=== PATIENT | female | born 1985 | race Caucasian/White ===

== ENCOUNTER 2019-05-23 21:21 | Emergency (ER) | payer OTHER ==
[2019-05-23] MEDS ORDERED: ONDANSETRON HCL INJ/PF 4 MG/2 ML SDV ONE (22:28)
[2019-05-23 22:35] LABS: ABSOLUTE BASOPHILS # (AUTO) 0.1 10^3/uL (0.0-0.2); ABSOLUTE EOSINOPHILS # (AUTO) 0.1 10^3/uL (0.0-0.6); ABSOLUTE LYMPHOCYTES (AUTO) 2.3 10^3/uL (0.5-4.7); ABSOLUTE MONOCYTES (AUTO) 0.7 10^3/uL (0.1-1.4); ABSOLUTE NEUT (AUTO) 8.5 10^3/uL (1.7-8.2); BASOPHILS % (AUTO) 0.6 % (0-2); EOSINOPHILS % (AUTO) 1.2 % (0-6); HEMATOCRIT 36.1 % (36.0-47.0); HEMOGLOBIN 12.6 g/dL (12.0-15.5); LYMPHOCYTES % (AUTO) 19.6 % (13-45); MEAN CORPUSCULAR HEMOGLOBIN 30.8 pg (27.0-33.4); MEAN CORPUSCULAR HGB CONC 34.8 g/dL (32.0-36.0); MEAN CORPUSCULAR VOLUME 89 fl (80-97); MONOCYTES % (AUTO) 6.1 % (3-13); PLATELET COUNT 233 10^3/uL (150-450); RED BLOOD COUNT 4.08 10^6/uL (3.72-5.28); RED CELL DISTRIBUTION WIDTH 14.1 % (11.5-14.0); SEGMENTED NEUTROPHILS % (AUTO) 72.5 % (42-78); TOTAL CELLS COUNTED % (AUTO) 100 %; WHITE BLOOD COUNT 11.8 10^3/uL (4.0-10.5)
[2019-05-23 22:46] LABS: ALANINE AMINOTRANSFERASE 20 U/L (9-52); ALBUMIN 4.6 g/dL (3.5-5.0); ALKALINE PHOSPHATASE 105 U/L (38-126); ANION GAP 8 (5-19); ASPARTATE AMINO TRANSFERASE 20 U/L (14-36); BILIRUBIN,DIRECT 0.2 mg/dL (0.0-0.4); BILIRUBIN,TOTAL 0.3 mg/dL (0.2-1.3); BLOOD UREA NITROGEN 17 mg/dL (7-20); CALCIUM 9.5 mg/dL (8.4-10.2); CARBON DIOXIDE 28 mmol/L (22-30); CHLORIDE 103 mmol/L (98-107); GLUCOSE 100 mg/dL (75-110); LIPASE 151.4 U/L (23-300); POTASSIUM 4.1 mmol/L (3.6-5.0); SODIUM 139.2 mmol/L (137-145); TOTAL PROTEIN 7.6 g/dL (6.3-8.2)
[2019-05-23] MEDS ORDERED: ONDANSETRON HCL INJ/PF 4 MG/2 ML SDV IV ONE (23:20)
[2019-05-23] MEDS ORDERED: MORPHINE SULFATE 10 MG/ML INJ IV ONE (23:21)
[2019-05-23] MEDS ORDERED: MORPHINE SULFATE 10 MG/ML INJ IV PRN (23:27)
[2019-05-23] MEDS ORDERED: RINGERS SOLUTION,LACTATED 1,000 ML IV ONE (23:27)
--- NOTE | 2019-05-23 23:28 | ER Document Report ---
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 Patient states that she is visiting here for a wedding, symptoms started gradually and have been worsening since onset. Describes the pain as being a severe, throbbing, burning pain to the affected abdominal areas with associated nausea and vomiting. No melena, hematochezia or hematemesis. Denies ever having pain like this in the past. Denies distinct shortness of breath but states that it also hurts to breathe. No history of pulmonary embolus. Denies fever or constitutional symptoms. No obvious exacerbating or alleviating factors for her symptoms. TRAVEL OUTSIDE OF THE [place] IN LAST 30 DAYS: No - Related Data Allergies/Adverse Reactions: benzocaine Allergy (Verified 05/23/19 22:36) Past Medical History - General Information source: Patient - Social History Smoking Status: Never Smoker Frequency of alcohol use: None Drug Abuse: None Lives with: Family Family History: Reviewed & Not Pertinent Review of Systems - Review of Systems Notes: Constitutional: Negative for fever. HENT: Negative for sore throat. Eyes: Negative for visual changes. Cardiovascular: Negative for chest pain. Respiratory: Negative for shortness of breath. Gastrointestinal: Positive for abdominal pain and vomiting Genitourinary: Negative for dysuria. Musculoskeletal: Negative for back pain. Skin: Negative for rash. Neurological: Negative for headaches, weakness or numbness. 10 point ROS negative except as marked above and in HPI. Physical Exam - Vital signs Vitals: Temp Pulse Resp BP Pulse Ox 98.9 F 92 20 122/86 H 98 05/23/19 21:44 05/23/19 21:44 05/23/19 21:44 05/23/19 21:44 05/23/19 21:44 Interpretation: Normal Notes: PHYSICAL EXAMINATION: GENERAL: Moderately ill in appearance, appears to be in moderate to severe pain. HEAD: Atraumatic, normocephalic. EYES: Pupils equal round and reactive to light, extraocular movements intact, sclera anicteric, conjunctiva are normal. ENT: nares patent, oropharynx clear without exudates. Moderately dry mucous membranes. NECK: Normal range of motion, supple without lymphadenopathy LUNGS: Breath sounds clear to auscultation bilaterally and equal. No wheezes r ales or rhonchi. HEART: Regular rate and rhythm without murmurs ABDOMEN: Soft, epigastric and right upper quadrant abdominal pain as well as right flank pain. Abdominal exam otherwise without localized tenderness. Normoactive bowel sounds. No guarding, no rebound. No masses appreciated. EXTREMITIES: Normal range of motion, no pitting or edema. No cyanosis. NEUROLOGICAL: No focal neurological deficits. Moves all extremities spontaneously and on command. PSYCH: Moderately anxious SKIN: Warm, Dry, normal turgor, no rashes or lesions noted. Course - Re-evaluation Re-evalutation: 05/23/19 23:27 Patient is a 33-year-old female presenting with right upper abdominal pain, right flank pain and right lower rib pain that started relatively abruptly over the past several hours. Patient is an extensive medical history including esophageal and gastric perforation from excessive NSAID use. The patient is visibly uncomfortable the time of my assessment, actively vomiting. Patient is status post cholecystectomy and appendectomy removing biliary and appendicitis from differential. Labs initially completely unremarkable. Certainly there is concern for PE as patient has a history of a blood clot in both her right upper extremity as well as into her internal jugular vein on the right although she is actively anticoagulated on Xarelto. Alternative considerations would include a repeat esophageal perforation, intra-abdominal abscess. Will proceed with aggressive imaging of the chest abdomen pelvis and continue to reassess at regular intervals. 05/23/19 23:27 05/24/19 02:02 CT chest negative for any evidence of acute pulmonary embolus, CT abdomen pelvis shows possible inflammatory pattern in the stomach and upper intestine. Suspect this could be inflammatory in origin versus possibly infectious. Have advised patient to begin on H2 sabina, Carafate, antiemetics. Patient's clinical exam is much improved from initial assessment. At this time will discharge with return precautions and follow-up recommendations. Verbal discharge instructions given a the bedside and opportunity for questions given. Medication warnings reviewed. Patient is in agreement with this plan and has verbalized understanding of return precautions and the need for primary care follow-up in the next 24-72 hours. - Vital Signs Vital signs: Temp Pulse Resp BP Pulse Ox 98.9 F 92 19 143/85 H 97 05/23/19 21:44 05/23/19 21:44 05/24/19 01:01 05/24/19 01:01 05/24/19 01:01 - Laboratory Result Diagrams: 05/23/19 22:16 05/23/19 22:16 Laboratory results interpreted by me: 05/23/19 05/23/19 22:16 23:34 WBC 11.8 H RDW 14.1 H Absolute Neutrophils 8.5 H Urine Protein 30 H Urine Ketones TRACE H Urine Blood LARGE H Urine Urobilinogen 2.0 H Ur Leukocyte Esterase TRACE H - Diagnostic Test Radiology reviewed: Image reviewed, Reports reviewed Discharge - Discharge Clinical Impression: Upper abdominal pain, Right flank pain Nausea and vomiting Qualifiers: Vomiting type: unspecified Vomiting Intractability: non-intractable Qualified Code(s): R11.2 - Nausea with vomiting, unspecified Condition: Good Disposition: HOME, SELF-CARE Additional Instructions: Your symptoms appear to be most consistent with stomach or upper intestinal irritation. Your CT scan does show some inflammation of your upper intestine but is otherwise normal. There is no evidence of a blood clot in your lung. Please begin taking famotidine 40 mg in the morning and 40 mg at night. Take Carafate prior to meals. You may also take medicine such as Pepto-Bismol or Tums to assist with your pain. Please return to emergency department immediately if you have worsening of your pain, shortness of breath, vomiting, become unable to exert yourself due to pain or difficulty breathing, you pass out, or have any pain that radiates into your arms, jaw, or back. Please also return if you have any additional symptoms that are concerning to you. As we have discussed, the most important thing is lifestyle changes. You need to avoid smoking, sodas, tea, coffee, alcohol, spicy foods, and acidic foods such as citrus fruits, tomato based products, berries, and most fruit juices. Your CT scan does not show any evidence of a blood clot in your lung, does show some inflammation of your upper intestine. Prescriptions: Famotidine 40 mg PO BID #60 tablet Metoclopramide HCl [Reglan 10 mg Tablet] 1 - 2 tab PO ASDIR PRN #25 tablet PRN Reason: Sucralfate [Carafate 1 gm Tablet] 1 gm PO ACHS #120 tablet
[2019-05-23 23:59] LABS: APPEARANCE,URINE CLOUDY; BILIRUBIN,URINE NEGATIVE (NEGATIVE); COLOR,URINE YELLOW; GLUCOSE, URINE NEGATIVE (NEGATIVE); KETONES,URINE TRACE mg/dL (NEGATIVE); LEUKOCYTE ESTERASE,URINE TRACE (NEGATIVE); NITRITE,URINE NEGATIVE (NEGATIVE); PROTEIN,URINE 30 mg/dL (NEGATIVE); URINE SPECIFIC GRAVITY 1.027
--- NOTE | 2019-05-24 00:15 | RADIOLOGY REPORT (SQ) ---
EXAM DESCRIPTION: CT CHEST ANGIOGRAPHY WITHOUT THEN WITH IV CONTRAST COMPLETED DATE/TME: 05/23/2019 23:27 CLINICAL HISTORY: 33 years, Female, cp, recent travel, 2 clots in rt arm current, eval pe COMPARISON: None. TECHNIQUE: Axial CT images of the chest were obtained after the administration of IV contrast. MPR and MIP reconstructions were performed. DLP 353 Images stored on PACS. All CT scanners at this facility use dose modulation, iterative reconstruction, and/or weight based dosing when appropriate to reduce radiation dose to as low as reasonably achievable (ALARA). [facility]: Dose Right [facility]: CareDose [facility]: Dose Right [facility]: Teradose 4D [facility]: Collactive LIMITATIONS: None. FINDINGS: No pulmonary embolism is detected. The visualized portions of the thyroid gland are normal. The central airways are patent size and there is no pericardial effusion. The thoracic aorta appears unremarkable. No evidence of an aneurysm or dissection. No evidence of a sentinel or hilar lymphadenopathy. The lungs are clear. There is no pneumothorax or pleural effusion. There is no acute fracture. IMPRESSION: No CT evidence of acute pulmonary embolism. TECHNICAL DOCUMENTATION: Quality ID # [id number]: Final reports with documentation of one or more dose reduction techniques (e.g., Automated exposure control, adjustment of the mA and/or kV according to patient size, use of iterative reconstruction technique) copyright 2011 [employer]- All Rights Reserved
[2019-05-24] MEDS ORDERED: METOCLOPRAMIDE HCL INJ/PF 10 MG/2 ML SDV ONE (01:33)
[2019-05-24] MEDS ORDERED: METOCLOPRAMIDE HCL INJ/PF 10 MG/2 ML SDV IV ONE (01:34)
--- NOTE | 2019-05-24 01:52 | RADIOLOGY REPORT (SQ) ---
CT ABDOMEN PELVIS WITH IV CONTRAST EXAM DATE: 05/23/2019 11:26 PM CDT HISTORY: Right upper quadrant pain. COMPARISON: None. TECHNIQUE: CT scan of the abdomen and pelvis was performed with IV contrast. This exam was performed according to our departmental dose-optimization program, which includes automated exposure control, adjustment of the mA and/or kV according to patient size and/or use of iterative reconstruction technique. FINDINGS: Please refer to the concomitantly performed CT scan of the chest for any pertinent findings There has been a prior cholecystectomy. The liver, spleen, pancreas, adrenal glands, and kidneys are unremarkable. No hydronephrosis or urinary stones are identified. The pelvic organs are normal. There is no acute diverticulitis. There has been a prior appendectomy. There are a few loops of proximal jejunum which are fluid-filled and with mild wall thickening, suggesting enteritis. No small bowel obstruction. No intraperitoneal free fluid or free air is seen. No acute bony findings. Right sacroiliac joint arthrodesis is noted. The aorta and IVC are unremarkable. There is no body wall hernia. IMPRESSION: 1. Findings suggestive of enteritis involving a few proximal jejunal bowel loops. 2. No bowel obstruction. 3. Prior cholecystectomy and appendectomy.
[2019-05-24] MEDS ORDERED: METOCLOPRAMIDE HCL ORAL SOLN 10 MG/10 ML UDCUP PO ONE (01:54)
[2019-05-24] MEDS ORDERED: MAG HYDROX/AL HYDROX/SIMETH SUSP 30 ML UDCUP PO ONE (01:54)
[2019-05-24] MEDS ORDERED: FAMOTIDINE 20 MG TABLET PO ONE (01:54)
[2019-05-24] MEDS ORDERED: SUCRALFATE 1 GM TABLET PO ONE (01:54)
[2019-05-24] MEDS ORDERED: LIDOCAINE 2% VISCOUS SOLN 20 ML UDCUP PO ONE (01:54)
[2019-05-24] MEDS ORDERED: ONDANSETRON ODT 4 MG TAB (6 TAB/ER DISP) PO PRN (02:04)
[2019-05-24 02:22] VITALS: BP 122/74
== END 2019-05-24 02:32 | disposition home or self-care (01) ==
LOC: ER 21:21
DX: R10.11 Right upper quadrant pain (principal); R10.13 Epigastric pain; R10.9 Unspecified abdominal pain; R11.2 Nausea with vomiting, unspecified; R07.81 Pleurodynia; Z79.02 Long term (current) use of antithrombotics/antiplatelets; Z86.718 Personal history of other venous thrombosis and embolism; Z88.4 Allergy status to anesthetic agent; Z87.19 Personal history of other diseases of the digestive system; Z90.49 Acquired absence of other specified parts of digestive tract
CPT/HCPCS: 96376; 99284; 96361; 96374; 96375; 36415; 83690; 84703; 85025; 80053; 81001; 71275; 74177; J3490; J2765; J2270 ×2; J2405; J7120